=== PATIENT | female | born 1965 | race Caucasian/White ===

== ENCOUNTER 2024-12-05 20:26 | Inpatient (IN) | payer OTHER, SELFPAY ==
[2024-12-05] VITALS (13 sets, daily range): BP systolic 130–183; BP diastolic 92–147; BMI 32.5
[2024-12-05 13:10] LABS: ALT (SGPT) 24 U/L (0-35); AST (SGOT) 27 U/L (14-36); Albumin 4.2 g/dl (3.5-5.0); Alkaline Phosphatase 144 U/L (38-126); Blood Urea Nitrogen 17 mg/dl (7-17); Calcium 9.6 mg/dl (8.4-10.2); Carbon Dioxide 29 mmol/L (22-30); Chloride 105 mmol/L (98-107); Glucose 110 mg/dl (70-99); Potassium 4.2 mmol/L (3.5-5.1); Sodium 142 mmol/L (135-145); Total Bilirubin 0.5 mg/dl (0.2-1.3); Total Protein 7.5 g/dl (6.3-8.2); eGFR > 60.00
[2024-12-05 13:15] LABS: % Basophils 1.1 % (0-2); % Eosinophils 4.6 % (0-6); % Immature Granulocytes 0.2 % (0-0.5); % Lymphocytes 34.6 % (20.5-51.1); % Monocytes 8.2 % (1.7-9.3); % Neutrophils 51.3 % (42.2-75.2); Absolute Basophils 0.1 10^3/uL (0-0.2); Absolute Eosinophils 0.4 10^3/uL (0-0.7); Absolute Monocytes 0.7 10^3/uL (0.1-0.6); Absolute Neutrophils 4.5 10^3/uL (1.4-6.5); Hematocrit 40.6 % (37.0-47.0); Hemoglobin 13.9 g/dL (12.0-16.0); Mean Corp Hgb Conc. 34.2 g/dL (33.0-37.0); Mean Corpuscular Hgb 29.8 pg (27.0-31.0); Mean Corpuscular Volume 86.9 fL (81.0-99.0); Mean Platelet Volume 10.5 fL (7.4-10.4); Nucleated Red Blood Cells % 0 %; Platelet Count 259 10^3/uL (130-400); Red Blood Cell Count 4.67 10^6/uL (4.20-5.40); Red Cell Dist. Width 13.6 % (11.5-14.5); White Blood Cell Count 8.8 10^3/uL (4.8-10.8)
--- NOTE | 2024-12-05 16:49 | ED.GENMED ---
History of Present Illness
General
Chief Complaint: Abdominal Pain
Source: patient
Exam Limitations: none
Time Seen by Provider: 12/05/24 16:22
History of Present Illness
History of Present Illness:
59yoF with a history of hypertension and tobacco use presenting for evaluation of abdominal pain. Patient started to notice blood after urinating yesterday. The urine initially appeared a dark red color. This has persisted today but urine now
appears to be a pinkish color. She denies any rectal or vaginal bleeding. She developed an abrupt onset of sharp, stabbing pain in her right lower quadrant this afternoon. Pain radiates to the right flank region. Pain is coming in waves And is
associated with nausea. She comes diaphoretic due to the pain. She took ibuprofen without much relief. She denies any dysuria, constipation, fevers
Phy Exam
Physical Exam
Physical Exam:
Appears uncomfortable, non-toxic
General Physical Exam
General Presentation: mild distress
General Skin: warm and dry
General Habitus: normal
General Mental: alert
ENT Exam
ENT Exam: normocephalic
Cardiovascular Exam
Cardiovascular Exam: regular rate/rhythm
Pulmonary Exam
Pulmonary Exam: lungs clear, no respiratory distress, no rales, no crackles and no rhonchi
Gastrointestinal Exam
Gastrointestinal Exam: non tender, soft, non distended and other (+R CVA tenderness)
Neurological Exam
Neurological Exam: alert
[place]ane Coma Scale
Eye Opening: Spontaneous
Verbal Response: Oriented
Motor Response: Obeys Commands
GCS Total Score: 15
Skin Exam
Skin Exam: normal color and warm/dry
Psychiatric Exam
Psychiatric Exam: normal mood/affect
Course
Orders/Labs/Results
Orders:
Orders
12/05/24 12:45
Type+Screen Urgent
Complete Blood Count/With Diff Urgent
Comprehensive Metabolic Panel Urgent
12/05/24 16:47
CT Abd/pel Without Iv Or Oral Urgent
Comment:
Reason For Exam: R flank pain, RLQ pain, hematuria
0.9% Sodium Chloride 1000 ml [Nss] 1,000 ml IV BOLUS
HYDROmorphone [Dilaudid] 0.5 mg IV NOW STA
Ketorolac [Toradol] 15 mg IV NOW STA
Ondansetron Injectable [Zofran] 4 mg IV NOW STA
12/05/24 17:27
ABO2 Urgent
BBK Wristband Number:
Associate notified that ABO2 has been ordered: SCOT-ER
Date: 12/05/24
Time: 12:53
Yeast Cake Cutter ID: [id number]
12/05/24 17:28
Urinalysis Reflex To Culture Urgent
Date Specimen was Collected: 12/05/24
Time Specimen was Collected: 17:27
Urine Microscopic Reflex Cult Urgent
Urine Culture Urgent
HARRIS Source: U
Specimen Description:
Date Specimen was Collected: 12/05/24
Time Specimen was Collected: 17:27
12/05/24 19:02
CefTRIAXone [Rocephin] 2,000 mg IV NOW STA
12/05/24 19:10
HYDROmorphone [Dilaudid] 0.5 mg IV NOW STA
12/05/24 19:16
Sterile Water [Sterile Water For Injection] 20 ml .ROUTE .STK-MED
12/05/24 19:35
Admit/Transfer Patient As Directed
Co-Sign Provider:
Level of Care: Inpatient admission
Assign to:: Medical/Surgical
Physician / Group: jennifer
Diagnosis: ureteral calculus
Reason for Hospitalization: ureteral calculus
Expected length of stay greater than two midnights?: Yes
ELOS- Estimated Length of Stay in days: 2
I certify the patient meets the requirements for IP care: Yes
PRN Pain Medication Management As Directed
May give lesser potent ordered pain med per pt: Yes
preference::
Protocol:: Medication orders for pain may be administered in a
manner that supports deferring to patient preference
when the pt is:
- Requesting an ordered lesser potent pain medication.
Least to most potent pain medications are defined
as: acetaminophen < NSAID < tramadol < opioids
(morphine, oxycodone, hydromorphone).
- Requesting a lesser dose of the same medication IF
ORDERED.
- Requesting a less intrusive route of administration
if both routes are prescribed by the provider (PO <
IV).
12/05/24 19:36
Code Status As Directed
Resuscitation Status: Full Code
Abnormal Lab Results
12/05/24 12/05/24
12:45 17:28
MPV 10.5 H fL
(7.4-10.4)
Absolute Monos (auto) 0.7 H 10^3/uL
(0.1-0.6)
Glucose 110 H mg/dl
(70-99)
Alkaline Phosphatase 144 H U/L
(38-126)
Ur Occult Blood Reflex 4+ A
(Negative)
Leukocyte Esterase Rfl 1+ A
(Negative)
Urine RBC >100 A /HPF
(0-2)
Urine Bacteria (Reflex) Few A
(Negative)
Urine Albumin (Reflex) 2+ A
(Neg - Trace)
12/05/24 12:45
12/05/24 12:45
Vital Signs
Initial and Last Documented VS:
Initial Vital Signs
Temp Pulse Resp BP Pulse Ox
98.9 F 64 18 183/108 98
12/05/24 12:35 12/05/24 12:35 12/05/24 12:35 12/05/24 12:35 12/05/24 12:35
Last Documented Vital Signs
Temp Pulse Resp BP Pulse Ox
98.9 F 70 18 167/102 99
12/05/24 12:35 12/05/24 19:26 12/05/24 19:26 12/05/24 19:19 12/05/24 19:26
MDM/Problems Addressed
Differential Diagnosis Includes:
59yoF here with hematuria x 1 day and RLQ/R flank pain that began this afternoon. Pain severe and coming in waves. Associated with diaphoresis/nausea. She appears uncomfortable but is nontoxic. +R CVA tenderness present on exam. Differential
diagnosis includes but is not limited to: Kidney stone, UTI, pyelonephritis, appendicitis
Initial ED plan: Labs obtained in triage. White count and renal function normal. Will add on UA and CT abdomen without contrast. IV Toradol, Dilaudid, Zofran, and fluid bolus for symptoms.
*Critical Care Note
Total Time (30-74mins, 75-104mins- exclusive of procedures): Not Applicable
Update Note
Update Note:
UA with hematuria but no signs of infection. CT shows a 2 mm R UVJ stone with moderate hydronephrosis with an acute ruptured right lower pole intrarenal calyx with a 7.5 cm right retroperitoneal fluid collection. Case discussed with urology who is
recommending admission, IV antibiotics, and NPO at midnight for possible intervention. Patient admitted to the hospitalist service for further management.
ED Attending Note
-
Portions of this chart may have been created with voice recognition software.� Occasional wrong word or��sound alike� substitutions may have occurred due to the inherent limitations of voice recognition software.
Discharge Plan
Departure
Patient Disposition: Admit
Date of Disposition: 12/05/24
Time of Disposition: 19:12
Presentation/result/management discussed w/ accepting MD/DO: Hospitalist
Discharge Problem:
Right ureteral stone
Interventions
Interventions:
*Risk Screen - Suicide Last Done: 12/05/24 12:38
*General Assessment Last Done: 12/05/24 12:38
*Neglect/Abuse Screening Last Done: 12/05/24 12:38
*ED- Fall Risk Assessment Last Done: 12/05/24 16:23
*ED COVID-19 Vaccine History Last Done: 12/05/24 12:38
EM-Idujoj-Egjooeyywy Assessment Last Done: 12/05/24 16:23
[2024-12-05] MEDS: NSS 1000 IV ×2 (17:32→23:56)
[2024-12-05] MEDS: DILAUDID 0.5 MG IV ×2 (17:33→19:19)
[2024-12-05] MEDS: ZOFRAN 4 MG IV (17:33)
[2024-12-05] MEDS: TORADOL 15 MG IV (17:34)
[2024-12-05 17:58] LABS: Urine Albumin 2+ (Neg - Trace); Urine Bilirubin Negative (Negative); Urine Character Slightly Cloudy (Clear); Urine Color Amber; Urine Glucose Negative (Negative); Urine Ketone Negative (Negative); Urine Leukocyte 1+ (Negative); Urine Nitrite Negative (Negative); Urine Occult Blood 4+ (Negative); Urine Specific Gravity 1.025 (<1.030); Urine Urobilinogen Negative (Neg - 1+)
[2024-12-05 18:41] LABS: Urine Amorphous Seen; Urine Bacteria Few (Negative); Urine Calcium Oxalate Crystals Present; Urine Red Blood Cell >100 /HPF (0-2); Urine Squamous Cell 0-2 /LPF (Few)
[2024-12-05] MEDS: ROCEPHIN 2000 MG IV (19:20)
--- NOTE | 2024-12-05 19:40 | HPS.HSE ---
Family Physician
-
Family Physician: BRITTANI Slater
Chief Complaint
-
right flank pain
History of Present Illness
59-year-old female past medical history of hypertension, anxiety/depression, GERD, presenting with abdominal pain. She started to notice blood after urinating yesterday. Urine initially appeared a dark red color. This persisted but now urine is
pink. Denies rectal or vaginal bleeding. She developed abrupt onset of sharp stabbing pain in her right lower quadrant this afternoon. Pain radiates to the right flank region. Pain associate with nausea. Diaphoretic. Took ibuprofen without
relief. Denies burning with urination, constipation or fever.
Denies history of kidney stones. Denies blood thinners.
He drinks a sixpack of beers on the weekend. She smokes half a pack of cigarettes per day.
Medical History
Past Medical History
Past Medical History: Reports Other ( hypertension, anxiety/depression, GERD)
Past Surgical History: Reports None
Social History
Tobacco: Smoker
Alcohol: Occasional
Drug: None
Family History
Family History: Not pertinent
Allergies / Home Medications
Allergies reflects when Allergies were last updated in [facility].
Home Medications with original date entered in [facility]
Allergy/Medication List:
Allergies
Allergy/AdvReac Type Severity Reaction Status Date / Time
No Known Allergies Allergy Unverified 12/05/24 12:36
Home Medications
bupropion HCl 150 mg tablet,12 hr sustained-release (Wellbutrin SR) 150 mg PO DAILY 12/05/24
diltiazem HCl 180 mg capsule,extended release 24 hr 180 mg PO DAILY 12/05/24
escitalopram oxalate 10 mg tablet (Lexapro) 10 mg PO DAILY 12/05/24
ibuprofen 400 mg tablet 400 mg PO DAILYPRN PRN mild pain 12/05/24
losartan 100 mg tablet 100 mg PO DAILY 12/05/24
omega 4-hpy-cxf-fish oil 1,000 mg (120 mg-180 mg) capsule (Fish Oil) 1 cap PO DAILY 12/05/24
omeprazole 40 mg capsule,delayed release 40 mg PO DAILY 12/05/24
therapeutic multivitamin 1 tab PO DAILY 12/05/24
Review of Systems
-
History Source: Patient
A 12 point ROS was completed and negative except as noted: Yes
Constitutional: Reports No Symptoms
EENT: Reports No Symptoms
Respiratory: Reports No Symptoms
Cardiac: Reports No Symptoms
Abdomen/GI: Reports See HPI
: Reports See HPI
Musculoskeletal: Reports No Symptoms
Skin: Reports No Symptoms
Neurological: Reports No Symptoms
Endocrine: Reports No Symptoms
Hematologic/Lymphatic: Reports No Symptoms
Psych: Reports No Symptoms
Physical Exam
Vital Signs
Vital Signs
Temp Pulse Resp BP Pulse Ox
98.9 F 70 18 167/102 99
12/05/24 12:35 12/05/24 19:26 12/05/24 19:26 12/05/24 19:19 12/05/24 19:26
Physical Exam
General: Well Developed, Well Nourished and No Apparent Distress
HEENT: NormoCephalic, Moist mucous membranes and Atraumatic
Respiratory: Clear
Cardiac: S1/S2 and Regular Rhythm; No Murmur or Rub
GI: Soft, Non Distended, Normal Bowel Sounds and Tender; No Organomegaly
Rectal: Deferred by Provider
Genito-urinary: Costovertebral angle tend (right )
Musculoskeletal: No Clubbing, No Cyanosis and No Edema
Skin: No Rash
Neuro: Nonfocal/grossly intact
Laboratory Results
-
12/05/24 12:45
12/05/24 12:45
Laboratory Results
Total Bilirubin 0.5 mg/dl (0.2-1.3) 12/05/24 12:45
AST 27 U/L (14-36) 12/05/24 12:45
ALT 24 U/L (0-35) 12/05/24 12:45
Alkaline Phosphatase 144 U/L (38-126) H 12/05/24 12:45
Data Reviewed
-
Lab Data: Labs Reviewed by me
Old Records: Reviewed
Impression/Plan
-
IMPRESSION:
PLAN:
# Obstructing ureteral calculus with moderate right hydroureteronephrosis
# Acute ruptured right lower pole intrarenal calyx
- CT abdomen shows moderate acute right hydroureteronephrosis secondary to 2 mm obstructing calculi at the right ureterovesicular junction, acute ruptured right lower lobe pole intrarenal calyx 7.5 cm right retroperitoneal fluid collection inferior
to the right kidney and posterior to the right ureter
-Urinalysis shows hematuria
- IV fluids
- Ceftriaxone
-Dilaudid, Zofran
- N.p.o. postmidnight for potential stent tomorrow as per urology
Essential hypertension
- Continue diltiazem, losartan
GERD
- Continue omeprazole
Anxiety/depression
- Continue Lexapro, bupropion
Active smoker
Full code
DVT prophylaxis�SCDs
N.p.o. past midnight
[2024-12-05] MEDS: MOTRIN 400 MG PO (23:50)
[2024-12-05] MEDS: FLUSH (NSS) 1 FLUSH IV (23:50)
[2024-12-06] VITALS (13 sets, daily range): BP systolic 127–187; BP diastolic 82–111; BMI 31.7
[2024-12-06] MEDS: DILAUDID 0.5 MG IV ×4 (02:03→20:51)
--- NOTE | 2024-12-06 03:00 | PTCARENOTE ---
Pt arrived to [facility] from ED, ambulating independently from stretcher into bed. Pt is AAOx3, reports 5/10 pain RLQ radiating to right lower back but denies needing pain meds at this time. Pt oriented to room, call cam in reach. BP on admission
was 187/111, HR 79; BP rechecked at 0400 was 142/88, HR 74. POC reviewed with pt.
[2024-12-06] MEDS: ZOFRAN 4 MG IV (03:53)
[2024-12-06 07:58] LABS: % Basophils 0.7 % (0-2); % Eosinophils 2.8 % (0-6); % Immature Granulocytes 0.3 % (0-0.5); % Lymphocytes 26.4 % (20.5-51.1); % Monocytes 8.5 % (1.7-9.3); % Neutrophils 61.3 % (42.2-75.2); Absolute Basophils 0.1 10^3/uL (0-0.2); Absolute Eosinophils 0.3 10^3/uL (0-0.7); Absolute Lymphocytes 3.2 10^3/uL (1.2-3.4); Absolute Neutrophils 7.4 10^3/uL (1.4-6.5); Hematocrit 38.3 % (37.0-47.0); Hemoglobin 12.9 g/dL (12.0-16.0); Mean Corp Hgb Conc. 33.7 g/dL (33.0-37.0); Mean Corpuscular Hgb 29.8 pg (27.0-31.0); Mean Corpuscular Volume 88.5 fL (81.0-99.0); Mean Platelet Volume 9.8 fL (7.4-10.4); Nucleated Red Blood Cells % 0 %; Platelet Count 259 10^3/uL (130-400); Red Blood Cell Count 4.33 10^6/uL (4.20-5.40); Red Cell Dist. Width 13.6 % (11.5-14.5); White Blood Cell Count 12.1 10^3/uL (4.8-10.8)
[2024-12-06 08:30] LABS: ALT (SGPT) 21 U/L (0-35); AST (SGOT) 22 U/L (14-36); Albumin 3.6 g/dl (3.5-5.0); Alkaline Phosphatase 127 U/L (38-126); Blood Urea Nitrogen 15 mg/dl (7-17); Calcium 9.2 mg/dl (8.4-10.2); Carbon Dioxide 27 mmol/L (22-30); Chloride 106 mmol/L (98-107); Estimated Creatinine Clearance 59 ml/min; Glucose 92 mg/dl (70-99); Potassium 4.2 mmol/L (3.5-5.1); Sodium 139 mmol/L (135-145); Total Bilirubin 0.5 mg/dl (0.2-1.3); Total Protein 6.3 g/dl (6.3-8.2); eGFR 57.52
[2024-12-06] MEDS: LEXAPRO 10 MG PO (09:50)
[2024-12-06] MEDS: COZAAR 100 MG PO (09:50)
[2024-12-06] MEDS: THERAGRAN 1 TABLET PO (09:50)
[2024-12-06] MEDS: WELLBUTRIN SR (12 hour sustained release) 150 MG PO (09:50)
[2024-12-06] MEDS: CARDIZEM CD 180 MG PO (09:54)
[2024-12-06] MEDS: PROTONIX 40 MG PO (09:55)
--- NOTE | 2024-12-06 10:21 | W.PN.URO.CBU ---
Today's Communication / Plan
-
for op room npo
Assessment / Plan
-
ongoing colic with forniceal rupture non toxic Will hydrate and place stent preop done consented family ar t bedside
Diagnosis
-
Date of Service: December 06, 2024
-
Patient Diagnosis:forniceal rupture with pain urinoma
Post Op Day:
Subjective
-
stil pain rt flank no fevr chills
Objective
-
Vital Signs
Temp Pulse Resp BP Pulse Ox
98.1 F 71 18 173/102 96
12/06/24 07:06 12/06/24 09:50 12/06/24 07:06 12/06/24 09:50 12/06/24 07:06
Intake and Output
12/05/24 12/06/24 12/07/24
06:59 06:59 06:59
Intake Total 240 / 240
Balance 240 / 240
Intake:
Oral fluids 240 / 240
IV fluids (Total) 0 / 0
IV piggybacks 0 / 0
Other:
Number of approximated MODERATE 1
amounts of urine
Laboratory Results
12/06/24 07:19
12/06/24 07:19
Review of Systems
-
: Flank Pain
Physical Exam
-
General - well developed, well nourished, no acute distress
Chest - clear bilaterally
Abdomen - soft, non-tender, positive bowel sounds, no CVAT, no incisional pain or distention
Genitalia - normal
Rectal - normal
Skin - warm & dry with no rash
Neuro - AOx3, no motor deficits
Extremities - no clubbing, no cyanosis, no edema
Incision - clean, dry
Dressing - clean, dry, intact
Care Review
Data Reviewed
Discussed with: Nursing and Family
CT Scan: Image Pers Reviewed
[2024-12-06] MEDS: NSS 1000 IV ×2 (11:42→20:16)
--- NOTE | 2024-12-06 13:36 | W.PN.HOSP.TC ---
Today's Communication/Plan
-
OR today for potential stent
pain control
IV fluids
Assessment / Plan
Assessment / Plan
Physical Exam
General: Well Developed, Well Nourished and No Apparent Distress
HEENT: NormoCephalic, Moist mucous membranes and Atraumatic
Respiratory: Clear
Cardiac: S1/S2 and Regular Rhythm; No Murmur or Rub
GI: Soft, Non Distended, Normal Bowel Sounds and Tender; No Organomegaly
Rectal: Deferred by Provider
Genito-urinary: Costovertebral angle tend (right )
Musculoskeletal: No Clubbing, No Cyanosis and No Edema
Skin: No Rash
Neuro: Nonfocal/grossly intact
# Obstructing ureteral calculus with moderate right hydroureteronephrosis
# Acute ruptured right lower pole intrarenal calyx
- CT abdomen shows moderate acute right hydroureteronephrosis secondary to 2 mm obstructing calculi at the right ureterovesicular junction, acute ruptured right lower lobe pole intrarenal calyx 7.5 cm right retroperitoneal fluid collection inferior
to the right kidney and posterior to the right ureter
-Urinalysis shows hematuria
- IV fluids
- Ceftriaxone until stent placed OK for now
-Dilaudid, Zofran
- N.p.o. - potential stent today
Essential hypertension
- Continue diltiazem, losartan
GERD
- Continue omeprazole
Anxiety/depression
- Continue Lexapro, bupropion
Active smoker
Tobacco dependence
-cessation advised
Full code
DVT prophylaxis�SCDs
N.p.o. past midnight
Anticipated Discharge: 24 - 48 hours
Subjective/Interval History
-
Date of Service: December 06, 2024
Pending better control, plan is for placing stent this afternoon
Objective Data
-
Labs:
Laboratory Results
12/06/24
07:19
WBC 12.1 H
Hgb 12.9
Hct 38.3
Plt Count 259
Sodium 139
Potassium 4.2
Chloride 106
Carbon Dioxide 27
BUN 15
Creatinine 1.1 H
Glucose 92
Calcium 9.2
Total Bilirubin 0.5
AST 22
ALT 21
Alkaline Phosphatase 127 H
Vital Signs:
Vital Signs
Temp Pulse Resp BP Pulse Ox
98.1 F 71 18 173/102 96
12/06/24 07:06 12/06/24 09:50 12/06/24 07:06 12/06/24 09:50 12/06/24 07:06
I&O
12/05/24 12/06/24 12/07/24
06:59 06:59 06:59
Intake Total 240 / 240
Balance 240 / 240
Review of Systems
-
History Source: Patient
All other systems: Not reviewed unless documented
Data Reviewed
-
CT Scan: Report Reviewed by me
Labs: Labs Reviewed by me
--- NOTE | 2024-12-06 18:50 | W.SUR.POST ---
Surgical Immediate Post Op
Note
Pre Op Diagnosis: rt uvj stone with obstruction and forniceal rupture
Post Op Diagnosis:same
Procedure Performed:
rt ureteroscpy laser stone jj stent rgp
Primary Surgeon:yusef
Secondary Surgeons:
Anesthesia: general dr tavarez
Estimated Blood Loss: 1cc
Fluids: nss
Drains/Shunts: 6 fr 24 cm jj stent
Specimens/Cultures:
Doppler/Duplex/Angio (Y/N):
Complications: 0
Operative Findings:2m stone lodged in rt uvy
[2024-12-06] MEDS: Pyridium 200 MG PO ×2 (19:28→23:54)
--- NOTE | 2024-12-06 20:02 | PTCARENOTE ---
Report received from [facility]. Patient arrived to the unit via bed. Call cam within reach. Patient assisted to bathroom.
[2024-12-06] MEDS: ROCEPHIN 1000 MG IV (20:14)
[2024-12-06] MEDS: STERILE WATER FOR INJECTION 10 ML IV (20:16)
[2024-12-07 03:15] VITALS: BP 149/86
[2024-12-07] MEDS: DILAUDID 0.5 MG IV ×2 (05:17→09:29)
[2024-12-07] MEDS: ZOFRAN 4 MG IV (05:23)
[2024-12-07 07:07] VITALS: BP 123/80
[2024-12-07 07:08] LABS: Hematocrit 37.3 % (37.0-47.0); Mean Corp Hgb Conc. 34.9 g/dL (33.0-37.0); Mean Corpuscular Hgb 29.9 pg (27.0-31.0); Mean Corpuscular Volume 85.7 fL (81.0-99.0); Mean Platelet Volume 10.2 fL (7.4-10.4); Platelet Count 272 10^3/uL (130-400); Red Blood Cell Count 4.35 10^6/uL (4.20-5.40); Red Cell Dist. Width 13.3 % (11.5-14.5); White Blood Cell Count 16.5 10^3/uL (4.8-10.8)
[2024-12-07 07:38] LABS: ALT (SGPT) 22 U/L (0-35); AST (SGOT) 23 U/L (14-36); Albumin 3.7 g/dl (3.5-5.0); Alkaline Phosphatase 125 U/L (38-126); Blood Urea Nitrogen 13 mg/dl (7-17); Calcium 9.6 mg/dl (8.4-10.2); Carbon Dioxide 27 mmol/L (22-30); Chloride 103 mmol/L (98-107); Estimated Creatinine Clearance 108 ml/min; Glucose 162 mg/dl (70-99); Potassium 4.7 mmol/L (3.5-5.1); Sodium 137 mmol/L (135-145); Total Bilirubin 0.7 mg/dl (0.2-1.3); Total Protein 6.5 g/dl (6.3-8.2); eGFR > 60.00
[2024-12-07] MEDS: WELLBUTRIN SR (12 hour sustained release) 150 MG PO (08:07)
[2024-12-07] MEDS: COZAAR 100 MG PO (08:07)
[2024-12-07] MEDS: PROTONIX 40 MG PO (08:07)
[2024-12-07] MEDS: LEXAPRO 10 MG PO (08:08)
[2024-12-07] MEDS: Pyridium 200 MG PO (08:08)
[2024-12-07] MEDS: THERAGRAN 1 TABLET PO (08:08)
[2024-12-07] MEDS: CARDIZEM CD 180 MG PO (08:08)
[2024-12-07] MEDS: NSS IV (10:55)
--- NOTE | 2024-12-07 11:52 | CM ---
Patient will d/c today. Patient seen bedside, initial assessment completed. Patient is a 59-year-old female past medical history of hypertension, anxiety/depression, GERD, presenting with abdominal pain. Right ureteroscopy and right double-J stent
this admission.
placement,
Patient resides w/ spouse and their 3 adult children in a 2 story split level home- no steps to enter. Patient is independent w/ ambulating, no device required. Independent w/ ADLs. No SNF/HC hx reported.
Address, point of contact and insurance verified
PCP: Neli Patel
Pharmacy: [facility]
Patient aware of d/c today, spouse will transport home
No CM needs identified at this time
Plan: Home, no needs
--- NOTE | 2024-12-07 12:21 | W.PN.HOSP.TC ---
Addendum entered and electronically signed by Samm Akers MD 12/07/24 16:00:
[id number]
Original Note:
Today's Communication/Plan
-
augmentin x 5 days
f/u cbc and bmp in 3 days with pcp
F/u PCP within 1 week and Urology outpt
Assessment / Plan
Assessment / Plan
Physical Exam
General: Well Developed, Well Nourished and No Apparent Distress
HEENT: NormoCephalic, Moist mucous membranes and Atraumatic
Respiratory: Clear
Cardiac: S1/S2 and Regular Rhythm; No Murmur or Rub
GI: Soft, Non Distended, Normal Bowel Sounds and Tender; No Organomegaly
Rectal: Deferred by Provider
Genito-urinary: Costovertebral angle tend (right )
Musculoskeletal: No Clubbing, No Cyanosis and No Edema
Skin: No Rash
Neuro: Nonfocal/grossly intact
# Obstructing ureteral calculus with moderate right hydroureteronephrosis
# Acute ruptured right lower pole intrarenal calyx
#-rt ureteroscpy laser stone jj stent rgp 12/06
- CT abdomen shows moderate acute right hydroureteronephrosis secondary to 2 mm obstructing calculi at the right ureterovesicular junction, acute ruptured right lower lobe pole intrarenal calyx 7.5 cm right retroperitoneal fluid collection inferior
to the right kidney and posterior to the right ureter
-Urinalysis shows hematuria - ucx negative
- IV fluids
- Ceftriaxone until stent placed - dc on augmentin x 5 days
-F/u Urology outp
Essential hypertension
- Continue diltiazem, losartan
GERD
- Continue omeprazole
Anxiety/depression
- Continue Lexapro, bupropion
Active smoker
Tobacco dependence
-cessation advised
Full code
DVT prophylaxis�SCDs
More than 30 minutes spent in discharge including
Final examination of the patient
Summarizing hospital stay
Instructions for continuing care to all relevant caregivers
Preparation of discharge records, prescriptions, and referral forms
Total time spent (in minutes): 36
Anticipated Discharge: Today
Subjective/Interval History
-
Date of Service: December 07, 2024
Feels much better, pain has resolved
Objective Data
-
Labs:
Laboratory Results
12/07/24 12/07/24
06:36 08:38
WBC 16.5 H Cancelled
Hgb 13.0 Cancelled
Hct 37.3 Cancelled
Plt Count 272 Cancelled
Sodium 137
Potassium 4.7
Chloride 103
Carbon Dioxide 27
BUN 13
Creatinine 0.6
Glucose 162 H
Calcium 9.6
Total Bilirubin 0.7
AST 23
ALT 22
Alkaline Phosphatase 125
Vital Signs:
Vital Signs
Temp Pulse Resp BP Pulse Ox
98.4 F 88 20 123/80 93
12/07/24 07:07 12/07/24 07:07 12/07/24 07:07 12/07/24 07:07 12/07/24 07:07
I&O
12/06/24 12/07/24 12/08/24
06:59 06:59 06:59
Intake Total 240 / 240 100 / 100
Output Total 125 / 125
Balance 240 / 240 -25 / -25
Review of Systems
-
History Source: Patient
All other systems: Not reviewed unless documented
Data Reviewed
-
CT Scan: Report Reviewed by me
Labs: Labs Reviewed by me
--- NOTE | 2024-12-07 12:23 | W.DS.TRANS ---
DC Summary - Occupational Nurse
-
Discharge Instructions:
Discharge Diagnosis/Procedures # Obstructing ureteral calculus with moderate
right hydroureteronephrosis
# Acute ruptured right lower pole intrarenal
calyx
Diet Low Cholesterol,Low Fat
Activity As tolerated
Blood Work cbc and bmp in 3 days with PCP
Instructions:
Stand-Alone Forms:
Changes to Home Medications: Yes
Discharge Medications:
DC Medications w/original date entered in [email or web address]
bupropion HCl 150 mg tablet,12 hr sustained-release (Wellbutrin SR) 150 mg PO DAILY Mental Health/Anxiety 12/05/24
diltiazem HCl 180 mg capsule,extended release 24 hr 180 mg PO DAILY Blood Pressure 12/05/24
escitalopram oxalate 10 mg tablet (Lexapro) 10 mg PO DAILY Mental Health/Anxiety 12/05/24
losartan 100 mg tablet 100 mg PO DAILY Blood Pressure 12/05/24
omega 5-tim-evm-fish oil 1,000 mg (120 mg-180 mg) capsule (Fish Oil) 1 cap PO DAILY Supplement 12/05/24
omeprazole 40 mg capsule,delayed release 40 mg PO DAILY Gastrointestinal Issue 12/05/24
therapeutic multivitamin 1 tab PO DAILY Supplement 12/05/24
amoxicillin 875 mg-potassium clavulanate 125 mg tablet 1 tab PO Q12H 5 days #10 tabs 12/07/24
Home Medication Changes
amoxicillin 875 mg-potassium clavulanate 125 mg tablet 1 tab PO Q12H 5 days #10 tabs 12/07/24
Pending Results: No
--- NOTE | 2024-12-07 13:00 | W.PN.URO.CBU ---
Today's Communication / Plan
-
READY FOR D/C
Assessment / Plan
-
STABLE POST OP LASER AND STENTING PT WITH FORNICEAL RUPTURE
Diagnosis
-
Date of Service: December 07, 2024
-
Patient Diagnosis:
Post Op Day:
Patient Diagnosis:forniceal rupture with pain urinoma
Post Op Day:
Subjective
-
MUCH IMPROVE NO PAIN SOME BLADDER PRESSURE NO FEVER CHILLS
Objective
-
Vital Signs
Temp Pulse Resp BP Pulse Ox
98.4 F 88 20 123/80 93
12/07/24 07:07 12/07/24 07:07 12/07/24 07:07 12/07/24 07:07 12/07/24 07:07
Intake and Output
12/06/24 12/07/24 12/08/24
06:59 06:59 06:59
Intake Total 240 / 240 100 / 100
Output Total 125 / 125
Balance 240 / 240 -25 / -25
Intake:
Oral fluids 240 / 240
IV fluids (Total) 0 / 0 100 / 100
Normosol 100 / 100
IV piggybacks 0 / 0
Output:
Urine, Voided 125 / 125
Other:
Number of approximated MODERATE 1 2
amounts of urine
Laboratory Results
12/07/24 08:38
12/07/24 06:36
Review of Systems
-
: Frequency and Urgency
Physical Exam
-
General - well developed, well nourished, no acute distress
Chest - clear bilaterally
Abdomen - soft, non-tender, positive bowel sounds, no CVAT, no incisional pain or distention
Genitalia - normal
Rectal - normal
Skin - warm & dry with no rash
Neuro - AOx3, no motor deficits
Extremities - no clubbing, no cyanosis, no edema
Incision - clean, dry
Dressing - clean, dry, intact
Care Review
Data Reviewed
Discussed with: Hospitalist and Nursing
CT Scan: Image Pers Reviewed
== END 2024-12-07 12:58 | disposition home or self-care (01) | DRG 661 ==
LOC: 4 WEST ACU 20:26
PROVIDERS: Physician Assistant; Student in an Organized Health Care Education/Training Program; ADMITTING PHYSICIAN Hospitalist; ATTENDING PHYSICIAN Internal Medicine; CONSULT PHYSICIAN Specialist; EMERGENCY PHYSICIAN Emergency Medicine; FAMILY PHYSICIAN Family Medicine
PROC: BT1D1ZZ Fluoroscopy of Right Kidney, Ureter and Bladder using Low Osmolar Contrast (ICD-10-PCS; 2024-12-06)
PROC: 0TC68ZZ Extirpation of Matter from Right Ureter, Via Natural or Artificial Opening Endoscopic (ICD-10-PCS; 2024-12-06)
PROC: 0T768DZ Dilation of Right Ureter with Intraluminal Device, Via Natural or Artificial Opening Endoscopic (ICD-10-PCS; 2024-12-06)
DX: N13.2 Hydronephrosis with renal and ureteral calculous obstruction (principal); F17.210 Nicotine dependence, cigarettes, uncomplicated; I10 Essential (primary) hypertension; K21.9 Gastro-esophageal reflux disease without esophagitis; F32.A Depression, unspecified; F41.9 Anxiety disorder, unspecified; N36.8 Other specified disorders of urethra; N28.89 Other specified disorders of kidney and ureter
CPT/HCPCS: 74176; 74420; 76000; 80053; 81003; 81015; 85025; 85027; 86850; 86900; 86901; 87086; 96361; 96374; 96375; 96376; 99285; C2617

== ENCOUNTER 2024-12-12 08:21 | Emergency (ER) | payer OTHER, SELFPAY ==
[2024-12-12 08:22] VITALS: BP 159/104
--- NOTE | 2024-12-12 08:41 | ED.GENMED ---
History of Present Illness
General
Chief Complaint: Flank Pain
Source: patient
Exam Limitations: none
Time Seen by Provider: 12/12/24 08:43
Nursing documentation reviewed up to this point in time: agreed with
History of Present Illness
History of Present Illness:
59 yo female w h/o HTN, GERD, kidney stones needing stent, anxiety, admitted 7 days ago for obstructing ureteral calculus with moderate right hydroureteronephrosis as well as acute ruptured right lower pole intrarenal elenita. Patient had ureteroscopy
with laser stone and JJ stent on 12/06 with improvement in symptoms, IV Rocephin and DC'd on Augmentin for 5 days. Pt states she has sharp intermittent RLQ pains since last p.,m. goes to 9/10 at times, now 4/10. No vomiting but feels a little
nauseous at times. Took Motrin last p.m. nothing today for pain. She was told the stent would be removed in one week (3 days from now). Denies fever/chills, no nausea at this time.
Past History
Past History
ED Past Medical History: GERD, HTN and Other (kidney stones. Stented 11/05/24)
ED Past Surgical History: Gynecological, Orthopedic and Urological (R ureteral stent 11/05/24)
Social History
Tobacco: Non-smoker
Alcohol: None
Personal:
Living: with family
Review of Systems
Review of Systems
Allergies reviewed?: Yes
All Other Systems: ROS reviewed and negative except as documented in HPI and ROS
Constitutional: Denies fever or chills
Respiratory: Denies trouble breathing
Cardiac: Denies chest pain
ABD/GI: Reports abdominal pain and nausea; Denies vomiting or diarrhea
: Reports flank pain (right); Denies dysuria, frequency, difficulty voiding or urgency
Musculoskeletal: Reports no symptoms
Skin: Reports no symptoms
Neurological: Reports no symptoms
Phy Exam
Physical Exam
Physical Exam:
GENERAL: No acute distress. A&Ox3.
CONSTITUTIONAL: Afebrile.
EYES: clear, conjunctivae normal
ENMT: moist mucus membranes tender right lower quadrant
RESPIRATORY: Regular respirations, nonlabored, lungs clear.
CARDIOVASCULAR: Regular rate and rhythm, no murmurs, no rubs.
GI: Soft, tender right lower quadrant, normal BS
MUSCULOSKELETAL: Moves with ease. Well perfused.
SKIN: Warm, dry, pink
PSYCH: Normal mood and affect. Well kept, interactive and appropriate
NEUROLOGIC: Awake, alert and oriented. No focal neurological deficits
Course
Orders/Labs/Results
Orders:
Orders
12/12/24 10:14
Complete Blood Count/With Diff Urgent
Comprehensive Metabolic Panel Urgent
12/12/24 10:28
Urinalysis Reflex To Culture Urgent
Date Specimen was Collected: 12/12/24
Time Specimen was Collected: 10:27
Urine Microscopic Reflex Cult Urgent
Urine Culture Urgent
HARRIS Source: U
Specimen Description:
Date Specimen was Collected: 12/12/24
Time Specimen was Collected: 10:27
12/12/24 12:07
Ketorolac [Toradol] 15 mg .ROUTE .STK-MED ONE
12/12/24 12:10
Ketorolac [Toradol] 15 mg IV NOW STA
12/12/24 12:18
CT Abd/pel Without Iv Or Oral Urgent
Comment:
Reason For Exam: recent R ureteral stent, now with pain in area
12/12/24 12:26
Morphine Sulfate 4 mg .ROUTE .STK-MED ONE
Ondansetron Injectable [Zofran] 4 mg .ROUTE .STK-MED ONE
12/12/24 12:27
Morphine Sulfate 4 mg IV NOW STA
12/12/24 12:29
Ondansetron Injectable [Zofran] 4 mg IV NOW STA
12/12/24 13:20
Add On- LAB Urgent
Tests Added?: urine culture
Abnormal Lab Results
12/12/24 12/12/24
10:14 10:28
WBC 11.0 H 10^3/uL
(4.8-10.8)
Abs Immat Gran (auto) 0.1 H 10^3/uL
(0-0.05)
Absolute Monos (auto) 1.1 H 10^3/uL
(0.1-0.6)
Monocytes % 9.9 H %
(1.7-9.3)
BUN 21 H mg/dl
(7-17)
Glucose 107 H mg/dl
(70-99)
Ur Occult Blood Reflex 4+ A
(Negative)
Leukocyte Esterase Rfl 2+ A
(Negative)
Urine RBC >100 A /HPF
(0-2)
Urine Bacteria (Reflex) Moderate A
(Negative)
Urine Albumin (Reflex) 3+ A
(Neg - Trace)
12/12/24 10:14
12/12/24 10:14
Vital Signs
Initial and Last Documented VS:
Initial Vital Signs
Temp Pulse Resp BP Pulse Ox
97.8 F 96 18 159/104 99
12/12/24 08:22 12/12/24 08:22 12/12/24 08:22 12/12/24 08:22 12/12/24 08:22
Last Documented Vital Signs
Temp Pulse Resp BP Pulse Ox
97.8 F 88 16 131/82 99
12/12/24 08:22 12/12/24 13:35 12/12/24 13:35 12/12/24 13:35 12/12/24 13:35
MDM/Problems Addressed
Differential Diagnosis Includes:
Kidney stone, UTI, stent pain/spasms
MDM/Problems Addressed:
59 yo female w h/o HTN, GERD, kidney stones needing stent, anxiety, admitted 7 days ago for obstructing ureteral calculus with moderate right hydroureteronephrosis as well as acute ruptured right lower pole intrarenal elenita. Patient had
ureteroscopy with laser stone and JJ stent on 12/06 with improvement in symptoms, IV Rocephin and DC'd on Augmentin for 5 days. Pt states she has sharp intermittent RLQ pains since last p.,m. goes to 910 at times, now 410. No vomiting but feels a
little nauseous at times. Took Motrin last p.m. nothing today for pain. She was told the stent would be removed in one week (3 days from now). Denies fever/chills, no nausea at this time.
11:45 a.m.
CBC, CMP with no clinically significant abnormality
UA: 4+ blood, 2+ leukocytes, 3+ albumin, RBCs: >100 WBCs: 3-5
1:00 p.m.
Pt feeling much better after pain medications. Pain 4/10, intermittent
Consulted Urology Dr. Ken who reviewed the CAT scan and states the stent is in perfect position, the right kidney and the bladder looks normal and no fluid or urinoma as she had on initial CT.
He recommends oxybutynin 5 mg twice daily as needed stent spasms, Pyridium as needed, Toradol as needed for likely renal colic and urine culture
All results discussed with pt.
She is comfortable with plan
She will call Urology office and confirm appt for Wed.(2 days)
Above Rx's sent to her pharmacy along with Tramadol rx.
Chronic conditions affecting care: HTN
*Critical Care Note
Total Time (30-74mins, 75-104mins- exclusive of procedures): Not Applicable
ED Attending Note
-
Portions of this chart may have been created with voice recognition software.� Occasional wrong word or��sound alike� substitutions may have occurred due to the inherent limitations of voice recognition software.
Discharge Plan
Departure
Patient Disposition: Home (Routine Discharge)
Date of Disposition: 12/12/24
Time of Disposition: 13:16
Patient with high blood pressure during this ER visit?: No
Condition: Fair
Discharge Problem:
Right sided abdominal pain
Instructions: Abdominal Pain
Prescriptions:
New
tramadol 50 mg tablet
50 mg PO Q8H PRN (Reason: Pain) Qty: 12 0RF
oxybutynin chloride 5 mg tablet
5 mg PO BID PRN (Reason: bladder spasms) Qty: 14 0RF
phenazopyridine [Pyridium] 100 mg tablet
100 mg PO TID PRN (Reason: Pain) Qty: 12 0RF
No Action
losartan 100 mg Tablet
100 mg PO DAILY
bupropion HCl [Wellbutrin SR] 150 mg Tablet Sustained-Release 12 Hr
150 mg PO DAILY
diltiazem HCl 180 mg Capsule,Extended Release 24hr
180 mg PO DAILY
therapeutic multivitamin Tablet
1 tab PO DAILY
omeprazole 40 mg Capsule,Delayed Release(Dr/Ec)
40 mg PO DAILY
escitalopram oxalate [Lexapro] 10 mg Tablet
10 mg PO DAILY
omega 2-cha-hex-fish oil [Fish Oil] 1,000 (120-180) mg Capsule
1 cap PO DAILY
amoxicillin-pot clavulanate 875-125 mg tablet
1 tab PO Q12H 5 Days Qty: 10 0RF
Referrals:
Neli Patel CRNP [Family Provider] -
Paramjit Mares MD [Active] - Keep scheduled appt
Activity Restrictions/Additional Instructions:
As we discussed, I spoke with the urologist Dr. Ken, he looked at your CT scan. The stent is in perfect position, the right kidney and the bladder looks normal and no fluid, it is improved from the previous CT scan.
He recommends oxybutynin 5 mg twice daily as needed stent spasms, Pyridium as needed, Toradol as needed for likely renal colic.
I sent a prescription to your pharmacy for tramadol which is a narcotic pain medication. Ibuprofen 600 mg every 6 hours as needed for mild to moderate pain and use the tramadol if needed for worse pain.
I also sent a prescription to your pharmacy for Pyridium and oxybutynin that are used for bladder spasms and pain. The Pyridium will turn your urine dark orange so do not be alarmed if you see this
Return here immediately for fever, shaking chills, repeated vomiting, worsening pain or feeling sicker in any way
Drink plenty of fluids
Interventions
Interventions:
*Risk Screen - Suicide Last Done: 12/12/24 10:10
*General Assessment Last Done: 12/12/24 10:10
*Neglect/Abuse Screening Last Done: 12/12/24 10:10
*ED- Fall Risk Assessment Last Done: 12/12/24 10:10
*ED COVID-19 Vaccine History Last Done: 12/12/24 10:10
*Nursing Disposition Last Done: 12/12/24 13:40
[facility]-Frbcta-Cdojryxwff Assessment Last Done: 12/12/24 10:10
ED-Female Genitourinary Assessment Last Done: 12/12/24 10:10
Discharge Date and Time
Discharge Date/Time: 12/12/24 13:40
Print Language: SPANISH
[2024-12-12 10:10] VITALS: BMI 32.8
[2024-12-12 10:15] VITALS: BP 148/101
[2024-12-12 10:38] LABS: ALT (SGPT) 24 U/L (0-35); AST (SGOT) 26 U/L (14-36); Alkaline Phosphatase 118 U/L (38-126); Blood Urea Nitrogen 21 mg/dl (7-17); Calcium 9.5 mg/dl (8.4-10.2); Carbon Dioxide 27 mmol/L (22-30); Chloride 105 mmol/L (98-107); Glucose 107 mg/dl (70-99); Potassium 4.5 mmol/L (3.5-5.1); Sodium 140 mmol/L (135-145); Total Bilirubin 0.5 mg/dl (0.2-1.3); eGFR > 60.00
[2024-12-12 10:49] LABS: % Eosinophils 3.9 % (0-6); % Immature Granulocytes 0.5 % (0-0.5); % Lymphocytes 29.6 % (20.5-51.1); % Monocytes 9.9 % (1.7-9.3); % Neutrophils 55.1 % (42.2-75.2); Absolute Basophils 0.1 10^3/uL (0-0.2); Absolute Eosinophils 0.4 10^3/uL (0-0.7); Absolute Immature Granulocytes 0.1 10^3/uL (0-0.05); Absolute Lymphocytes 3.3 10^3/uL (1.2-3.4); Absolute Monocytes 1.1 10^3/uL (0.1-0.6); Absolute Neutrophils 6.1 10^3/uL (1.4-6.5); Hematocrit 40.3 % (37.0-47.0); Hemoglobin 13.9 g/dL (12.0-16.0); Mean Corp Hgb Conc. 34.5 g/dL (33.0-37.0); Mean Corpuscular Hgb 29.8 pg (27.0-31.0); Mean Corpuscular Volume 86.5 fL (81.0-99.0); Mean Platelet Volume 9.4 fL (7.4-10.4); Nucleated Red Blood Cells % 0 %; Platelet Count 348 10^3/uL (130-400); Red Blood Cell Count 4.66 10^6/uL (4.20-5.40)
[2024-12-12 11:05] LABS: Urine Albumin 3+ (Neg - Trace); Urine Bilirubin Negative (Negative); Urine Character Cloudy (Clear); Urine Color Amber; Urine Glucose Negative (Negative); Urine Ketone Negative (Negative); Urine Leukocyte 2+ (Negative); Urine Nitrite Negative (Negative); Urine Occult Blood 4+ (Negative); Urine Urobilinogen Negative (Neg - 1+); Urine pH 6.5 (5.0-9.0)
[2024-12-12 11:29] LABS: Urine Red Blood Cell >100 /HPF (0-2); Urine Squamous Cell 0-2 /LPF (Few)
[2024-12-12 11:30] LABS: Urine Bacteria Moderate (Negative)
[2024-12-12 11:59] VITALS: BP 157/97
[2024-12-12] MEDS: TORADOL 15 MG IV (12:11)
[2024-12-12] MEDS: MORPHINE SULFATE 4 MG IV (12:28)
[2024-12-12] MEDS: ZOFRAN 4 MG IV (12:30)
--- NOTE | 2024-12-12 12:46 | EDRN ---
Pt states pain is now a 4-6/10 and no longer up to 8/10.
--- NOTE | 2024-12-12 13:31 | EDRN ---
Jaimie PETER in room w/ pt at this time discussing results for discharge.
[2024-12-12 13:35] VITALS: BP 131/82
== END 2024-12-12 13:40 | disposition home or self-care (01) ==
LOC: EMR 08:21
PROVIDERS: Registered Nurse; EMERGENCY PHYSICIAN Emergency Medicine; FAMILY PHYSICIAN Family Medicine
DX: R10.9 Unspecified abdominal pain (principal); I10 Essential (primary) hypertension; F41.9 Anxiety disorder, unspecified; Z87.442 Personal history of urinary calculi
CPT/HCPCS: 99284; 96374; 96375; 74176; 80053; 81003; 81015; 85025; 87086